=== PATIENT | female | born 1950 | race Caucasian/White ===

== ENCOUNTER → 2016-08-24 | Outpatient (CLI) | payer OTHER ==
[~2016-08-24] MED LIST: DIAZEPAM PO; HYDROCODONE; LOPRESSOR PO; METOCLOPRAMIDE HCL PO; NORCO 10/325 TA1 TAB PO; PRILOSEC PO; PROZAC PO; REGLAN PO; SEROQUEL PO
--- NOTE | ~2016-08-24 | CT57 ---
[facility] A Service of [facility] & [facility] RADIOLOGY TEXT RESULTS PATIENT: MARYLOU MAKI LOCATION: [facility] : 46 UNIT #: [id number] AGE: [address]: Jose Luis Herman MD SEX: F ORDER DR: [id number] [facility] [address] [place], [place] [address] [id number] O MR#: [id number] Acc #: [id number] NAME: MARYLOU MAKI : 1950 SEX: F STUDY DATE/TIME: 08/24/2016 15:42 UNIT: [facility] ROOM: STUDY DESCRIPTION: CT Chest Wo Cont Attending Physician: Jose Luis Herman M.D. Referring Physician: Jose Luis Herman M.D. Ordering Physician: Jose Luis Herman M.D. Primary Care Physician: Guido Sierra M.D. MEDICAL IMAGING REPORT This report is preliminary unless electronic signature is present EXAM CT chest without contrast HISTORY Short of air 4 weeks. With exertion. Tired, dizzy. TECHNIQUE This CT exam was performed with one or more of the following radiation dose reduction techniques: automatic exposure control, adjustment of mA and/or kV according to patient size, and iterative reconstruction. FINDINGS CT chest performed without administration of intravenous contrast. Comparison 02/02/2015. Thyroid unremarkable. No axillary adenopathy. No mediastinal or hilar adenopathy. Heart normal in size. No pleural effusions. Fatty infiltration of the liver without suspicious focal hepatic parenchymal abnormality. Gallbladder, spleen, pancreas, adrenal glands, visualized portions of kidneys unremarkable. No upper abdominal adenopathy. Esophagus, stomach, small bowel and colon unremarkable in visualized extent. Centrilobular emphysema. Some minimal subpleural bullous change at the right apex. Stable. No acute pulmonary disease. No suspicious nodule. Scattered atherosclerotic arterial calcifications. No aneurysm. Bony structures show no acute abnormality. There are degenerative changes in the spine. IMPRESSION 1. No clearly acute abnormality is seen in the chest. Patient has underlying centrilobular emphysema with some minimal bullous change at the right apex. Stable compared to prior study in 2014. There is no indication of acute infectious or inflammatory disease. No pleural effusion, pneumothorax or suspicious nodule. 2. Heart upper limits of normal in size to borderline enlarged. Stable. 3. Fatty infiltration of liver without suspicious focal parenchymal STS. [facility] A Service of [facility] RADIOLOGY TEXT RESULTS PATIENT: MARYLOU MAKI LOCATION: [facility] : 46 UNIT #: [id number] AGE: [address]: Jose Luis Herman MD SEX: F ORDER DR: abnormality. Remainder of upper abdomen unremarkable. 4. Atherosclerotic arterial calcifications. No aortic aneurysm. ADDENDUM Not discussed in body report, there is a geographic area of hypodensity in segment 4B of the liver subcapsular location measuring about 1.6 cm in diameter. More conspicuous than in 2015 but present on prior examination. The appearance is nonspecific. Stability over this time frame favors benign etiology. It probably represents a localized area of focal fatty infiltration versus complicated cyst or hemangioma. If it would impact patient management, this could best be further evaluated with multiphase contrast-enhanced MRI or CT. Dictated by... Ray Mancilla M.D. THIS IS AN ELECTRONICALLY VERIFIED REPORT Ray Mancilla M.D. at 08/25/2016 5:05 PM [place] TD: 08/25/2016 16:07 JOB #: [id number] MEDICAL IMAGING REPORT Page 1 of 1 COPY
--- NOTE | ~2016-08-24 | CR63 ---
[facility] A Service of [facility] RADIOLOGY TEXT RESULTS PATIENT: MARYLOU MAKI LOCATION: [facility] : 46 UNIT #: [id number] AGE: [address]: Jose Luis Herman MD SEX: F ORDER DR: [id number] [place], [place] [address] [id number] O MR#: [id number] Acc #: [id number] NAME: MARYLOU MAKI : 1950 SEX: F STUDY DATE/TIME: 08/24/2016 15:53 UNIT: [facility] ROOM: STUDY DESCRIPTION: CR Chest 2 View Attending Physician: Jose Luis Herman M.D. Referring Physician: Jose Luis Herman M.D. Ordering Physician: Jose Luis Herman M.D. Primary Care Physician: Guido Sierra M.D. MEDICAL IMAGING REPORT This report is preliminary unless electronic signature is present EXAM Chest x-ray. DATE OF EXAM 08/24/2016 HISTORY Shortness of breath for the past month with a history of pneumonia. COMPARISON 03/05/2015 TECHNIQUE 2 views of the chest were obtained. FINDINGS Mid thoracic scoliosis is seen. Heart size is normal. The aorta is calcified. Both lungs are clear with normal vascular markings and no pleural fluid is seen. IMPRESSION No active disease. Lungs clear. Dictated by... Cosme Shaw M.D. THIS IS AN ELECTRONICALLY VERIFIED REPORT Cosme Shaw M.D. at 08/24/2016 6:51 PM DELFINOF/yoana TD: 08/24/2016 18:47 JOB #: [id number] [facility] A Service of [facility] RADIOLOGY TEXT RESULTS PATIENT: MARYLOU MAKI LOCATION: [facility] : 46 UNIT #: [id number] AGE: [address]: Jose Luis Herman MD SEX: F ORDER DR: MEDICAL IMAGING REPORT Page 1 of 1 COPY
== END | disposition home or self-care (01) ==
LOC: CRC 13:42
DX: R06.02 Shortness of breath (principal); K76.0 Fatty (change of) liver, not elsewhere classified; I70.90 Unspecified atherosclerosis; K76.89 Other specified diseases of liver; I51.7 Cardiomegaly
CPT/HCPCS: 71020; 71250; 94060; 94726; 94729